=== PATIENT | male | born 1950 | race Hispanic/Latino ===

== ENCOUNTER 2024-11-02 10:40 | Emergency (ER) | payer MEDICARE ==
[~2024-11-02] VITALS: Ht 177.8 cm; Wt 95.3 kg
[2024-11-02 11:18] VITALS: BP 145/86; PULSE 88; RESP 18; TEMP 98.6; O2SAT 97
[2024-11-02 11:31] LABS: BASOPHILS # (AUTO) 0.05 K/uL (0.00-0.20); BASOPHILS % (AUTO) 0.7 % (0.0-5.0); EOSINOPHILS # (AUTO) 0.27 K/uL (0.00-0.70); EOSINOPHILS % (AUTO) 3.6 % (0.0-8.0); HEMATOCRIT 45.4 % (42-54); IMMATURE GRANULOCYTE ABSOLUTE 0.02 K/uL (0-1); LYMPHOCYTES # (AUTO) 1.5 K/uL (1.0-4.8); LYMPHOCYTES % (AUTO) 19.8 % (21.0-51.0); MEAN CORPUSCULAR HEMOGLOBIN 30.6 pg (27.0-33.0); MEAN CORPUSCULAR HGB CONC 31.9 g/dL (32.0-36.0); MEAN CORPUSCULAR VOLUME 95.8 fL (79-99); MONOCYTES # (AUTO) 0.7 K/uL (0.1-1.0); MONOCYTES % (AUTO) 8.7 % (3.0-13.0); NEUTROPHILS % (AUTO) 66.9 % (40.0-77.0); PLATELET COUNT (AUTO) 236 K/uL (130-400); RED BLOOD CELL COUNT(AUTO) 4.74 MIL/uL (4.50-6.20); RED CELL DISTRIBUTION WIDTH 13.1 % (11.0-15.5); WHITE BLOOD COUNT (AUTO) 7.5 K/uL (4.8-10.8)
[2024-11-02 11:36] LABS: CREATININE 0.9 mg/dL (0.5-1.3); POTASSIUM 4.1 mmol/L (3.5-5.1)
[2024-11-02] MEDS: LIDOCAINE HCL 1% 20 ML VIAL INJ STA (11:42)
[2024-11-02] MEDS: HYDROcodone/APAP 5/325 1 TAB TABLET PO STA (11:42)
--- NOTE | 2024-11-02 12:20 | NUR ---
I&D KIT SET UP AT BEDSIDE IN ROOM 6 ALONG WITH 1 VIAL OF LIDOCAINE, IODOFORM 1/4 PACKING STRIP AND NONADHERENT DRESSING WAS USED TO COVER WOUND AFTER PROCEDURE. PT TOLERATED PROCEDURE WELL. EDUCATION WAS GIVEN ON HOW TO CARE FOR WOUND AT HOME. PT AGREED AND UNDERSTOOD. RX FORM GIVEN TO PT.
[2024-11-02] MEDS ORDERED: SULF1TAB42 PO (12:27)
--- NOTE | 2024-11-02 12:28 | ERN ---
ED Note History of Present Illness Stated Complaint: UNIDENTIFIED RASH ON BACK Chief Complaint: Abscess Time Seen by MD: 10:41 Time Seen by Midlevel: 10:45 Dictation: 74-year-old male with medical history of diabetes coming in with complaints of an abscess to the mid bag. Patient states this happened four years ago where he had to be drained. Denies having any recent fever, chills, nausea, vomiting. Allergies: Coded Allergies: No Known Allergies (Unverified Allergy, Unknown, 11/02/24) Past Medical History Past Medical History: Diabetes-Type II Surgical History: Other Review of System Dictation Constitutional: Negative for fever,chills, and weight loss Eyes: Negative for injury, pain,redness, and discharge ENT: Negative for injury,pain or swelling Cardiovascular: Negative for chest pain, palpitations, and edema Respiratory: Negative for shortness of breath, cough, and wheezing, Abdomen/GI: Negative for abdominal pain, nausea, vomiting, diarrhea, and constipation Back: Negative for injury and pain : Negative for injury, bleeding and discharge MS/Extremity: Negative for injury and deformity Skin: Negative for rash, and discoloration, abscess of the mid back Neuro: Negative for headache, weakness, numbness, tingling, and seizure Psych: Negative for suicide ideation, homicidal ideation, and hallucinations Review of Systems: was completed Initial Vital Sign VS Vital Signs Date Time Temp Pulse Resp B/P (MAP) Pulse Ox O2 Delivery O2 Flow Rate FiO2 11/02/24 10:57 97.5 58 20 161/99 99 Room Air 11/02/24 11:18 0 21 Physical Exam Dictation General: awake, alert, NAD Head/Face: Normocephalic, atraumatic Eyes: PERRL, EOMI, vision at baseline ENT: oral cavity clear, TMs clear, no signs of infection Neck: Trachea midline, supple, no nuchal rigidity Cardiovascular: RRR, normal S1/S2, No MRGs, no JVD Respiratory: CTAB, no respiratory distress, No rales or wheezes Abdomen: Soft, non-tender, non-distended, normal bowel sounds, no guarding or rebound. Skin: Warm, dry, normal turgor, no rash, there is in findings consistent with abscess to the mid back area, redness, fluctuance, induration MS/Extremity: Pulses equal, no cyanosis, neurovascular intact, FROM Neuro: COAx4, GCS 15, strength 5/5, CN 2-12 intact, normal cerebellar exam, normal gait, Psych: Normal behavior, mood, and affect normal Results (Laboratory/Radiology) Laboratory/Radiology Laboratory Tests Test 11/02/24 11:22 White Blood Count 7.5 K/uL (4.8-10.8) Red Blood Count 4.74 MIL/uL (4.50-6.20) Hemoglobin 14.5 g/dL (14.0-18.0) Hematocrit 45.4 % (42-54) Mean Corpuscular Volume 95.8 fL (79-99) Mean Corpuscular Hemoglobin 30.6 pg (27.0-33.0) Mean Corpuscular Hemoglobin Concent 31.9 g/dL (32.0-36.0) L Red Cell Distribution Width 13.1 % (11.0-15.5) Platelet Count 236 K/uL (130-400) Mean Platelet Volume 9.7 fL (7.5-10.5) Immature Granulocyte % (Auto) 0.3 % (0-1) Neutrophils (%) (Auto) 66.9 % (40.0-77.0) Lymphocytes (%) (Auto) 19.8 % (21.0-51.0) L Monocytes (%) (Auto) 8.7 % (3.0-13.0) Eosinophils (%) (Auto) 3.6 % (0.0-8.0) Basophils (%) (Auto) 0.7 % (0.0-5.0) Neutrophils # (Auto) 5.0 K/uL (1.8-7.7) Lymphocytes # (Auto) 1.5 K/uL (1.0-4.8) Monocytes # (Auto) 0.7 K/uL (0.1-1.0) Eosinophils # (Auto) 0.27 K/uL (0.00-0.70) Basophils # (Auto) 0.05 K/uL (0.00-0.20) Absolute Immature Granulocyte (auto 0.02 K/uL (0-1) Nucleated Red Blood Cells 0.0 % (0.0-0.19) Sodium Level 143 mmol/L (136-145) Potassium Level 4.1 mmol/L (3.5-5.1) Chloride Level 108 mmol/L (101-111) Carbon Dioxide Level 34 mmol/L (21-32) H Blood Urea Nitrogen 27 mg/dL (7-18) H Creatinine 0.9 mg/dL (0.5-1.3) Glomerular Filtration Rate Calc 89 mL/min (>90) Random Glucose 102 mg/dL (70-105) Lactic Acid Level 0.9 mmol/L (0.8-2.5) Total Calcium 9.2 mg/dL (8.5-10.1) Labs Reviewed?: Yes ED Course ED Course Orders Procedure Category Date Status Time Cbc With Differential LAB 11/02/24 Complete 10:58 Basic Metabolic Panel LAB 11/02/24 Complete 10:58 Lactic Acid LAB 11/02/24 Complete 10:58 Blood Cult V[place]A 11/02/24 In Process 10:58 Lidocaine Hcl 1% 20ml PHA 11/02/24 Complete Vial (Lidocaine Hc 11:32 Hydrocodone/Apap PHA 11/02/24 Complete 5/325 ([place] 5/325mg) 11:32 Current Medications Medications (Trade) Dose Ordered Sig/Imelda Route PRN Reason Start Time Stop Time Status Last Admin Dose Admin Acetaminophen/ Hydrocodone Bitart (NORco 5/325MG) 1 tab ONCE STAT PO 11/02/24 11:32 11/02/24 11:35 DC 11/02/24 11:42 Lidocaine HCl (Lidocaine HCl 1% 20ml Vial) ONCE STAT INJ 11/02/24 11:32 11/02/24 11:35 DC 11/02/24 11:42 Vital Signs Date Time Temp Pulse Resp B/P (MAP) Pulse Ox O2 Delivery O2 Flow Rate FiO2 11/02/24 11:18 98.6 88 18 145/86 97 Room Air* 0 21 11/02/24 10:57 97.5 58 20 161/99 99 Room Air Medical Decision Making MDM MDM: 74-year-old male with medical history of diabetes coming in with complaints of an abscess to the mid bag. Patient states this happened four years ago where he had to be drained. Denies having any recent fever, chills, nausea, vomiting. Blood work unremarkable. No leukocytosis, lactic within normal range. No suspicion for sepsis. I and D was performed at bedside, significant amount of purulent, foul odor discharge. Area was then flushed with 40 cc of sterile saline, and iodoform packing applied. Discussed with the patient that he used to remove about 1/4 of the iodoform every day until it is completely out and take the antibiotics. Differential diagnosis: Abscess, cellulitis Rationale: Tests considered and ordered secondary to shared decision making include: Previous outside records reviewed: Old ER visits. Risk of complication and/or morbidity or mortality of patient management: None Medications-Per medication reconciliation Need for hospitalization: Patient does not meet criteria for hospitalization. Need for emergency major/minor surgery: No There are no social concerns with this patient. Prescription drug management Prescriptions will include symptomatic care Patient's prior external medical records from other ER visits were reviewed by me as indicated. Prior testing and results from previous visits were reviewed. Prior tests were taken into account with medical decision making and resource utilization, independent historian/historians were used to obtain complete medical history. I independently interpreted the test that were performed, results were reviewed by me and considered findings on radiology if ordered. Medical management and examination interpretation discussions were had by me with other qualified healthcare professionals as indicated for the patient's care. Procedure Blade Size: 11 I & D Procedure: no betadine prep DX & DISP Disposition: Discharge Departure Impression: Primary Impression: Abscess Condition: Stable Scripts Sulfamethoxazole/Trimethoprim (Bactrim Ds Tablet) 800 Mg-160 Mg Tablet 1 TAB PO BID for 7 Days, #14 TAB 0 Refills Prov: KELLY MOSS NP 11/02/24 Additional Instructions: Keep area clean and dry. Remove around 1/4 of the dressing until it is completely out. Complete the course of antibiotics. If you develop any fevers, nausea and vomiting foul odor please return back to the ER or follow up with your PCP. Referrals: SELF,REFERRAL (PCP) Time of Disposition: 12:27 I have reviewed the case, and I agree with, Diagnosis and Plan KELLY MOSS NP Nov 02, 2024 12:28
== END 2024-11-02 12:33 | disposition home or self-care (01) ==
LOC: EDH 10:40
DX: L02.212 Cutaneous abscess of back [any part, except buttock and flank] (principal); E11.9 Type 2 diabetes mellitus without complications
CPT/HCPCS: 10060; 36415; 80048; 83605; 85025; 87040; 99283